=== PATIENT | male | born 1945 | race Caucasian/White ===

== ENCOUNTER 2016-06-05 13:44 | Inpatient (IN) ==
[2016-06-05] MEDS ORDERED: CeFAZolin Pre 2,000 MG/100 ML 2,000 MG/100 ML BAG IVPB ONE (14:10)
[2016-06-05] MEDS ORDERED: Ringers Solution, Lactated 1,000 ML IVC SCH ×2 (14:15→21:36)
--- NOTE | 2016-06-05 14:58 | History & Physical Report ---
Date of Encounter: 06/05/16 Time of Encounter: 14:58 24 Hour HP Update - Instructions Instructions: If the History and Physical is less than 30 days old and was completed prior to A.M. admission and or procedure and has NOT been updated on calendar day of procedure please complete this update prior to performing procedure. - Update Patient reports changes in Medical Condition: No Changes in assessment/condition: No Changes in Medication: No Preop tests/diagnostics Reviewed: Yes Surgery Remains Indicated: Yes Consent for Planned Operative Procedure(s) Verified: Yes - Pre-Operative Checklist Preoperative Checklist Indicated: No Prophylactic Antibiotic Ordered: Yes Is VTE Prophylaxis Indicated?: Yes
--- NOTE | 2016-06-05 16:14 | Anesthesia Evaluation PreOp ---
Date of Encounter: 06/05/16 Time of Encounter: 16:10 - Past History Planned Operation: Rt Total Shoulder Revision Cardiac History: HTN, Hyperlipidemia, Arrhythmia (AFib) Pulmonary History: GREG Dx STRATEGY PLANNING CONSULTANT History: Denies Any Significant HX Other Medical History: Denies Any Significant HX Anesthesia History: Past Anesthesia (Left Total Shoulder), Problems (Vocal changes) Alcohol Use: none Drug use: none Medications and Allergies Celecoxib [Celebrex] 200 mg PO DAILY 06/05/16 [History] Cetirizine HCl [Zyrtec] 10 mg PO DAILY 06/05/16 [History] Docusate [Colace] 100 mg PO DAILY 06/05/16 [History] Fluticasone Propionate Nasal [Flonase] 1 spr NS DAILY PRN 06/05/16 [History] Magnesium Oxide [Magnesium] 400 mg PO DAILY 06/05/16 [History] Multivitamin [One Daily Multivitamin] 1 each PO DAILY 06/05/16 [History] Omeprazole [PriLOSEC] 20 mg PO DAILY 06/05/16 [History] OxyCODONE/APAP 5/325 [Percocet 5/325 MG] 1 each PO Q6HR 06/05/16 [History] Potassium Chloride [Klor-Con 10] 10 meq PO BID 06/05/16 [History] Propafenone [Rhythmol] 150 mg PO TID 06/05/16 [History] Simvastatin [Zocor] 10 mg PO HS 06/05/16 [History] Tamsulosin [Flomax] 0.4 mg PO DAILY 06/05/16 [History] Warfarin [Coumadin] 2.5 mg PO OLIVAS 06/05/16 [History] Warfarin [Coumadin] 5 mg PO MOTUWEFRSA 06/05/16 [History] Allergies No Known Allergies Allergy (Verified 06/05/16 14:46) - Meds/Allergy Pre-op Review Medications Reviewed: Yes Allergies Reviewed: Yes Beta Blockers on Current Med List: Yes (Rhythmol today 0830) Anesthesia Results - Labs Labs pending - Imaging EKG: pending Anesthesia Exam O2 Sat Height 1.88 m Height 1.88 m Weight 113.398 kg Weight 113.398 kg O2 Sat by Pulse Oximetry 95 Vital Signs Temp Pulse Resp BP Pulse Ox 99.8 F H 91 16 121/80 95 06/05/16 14:32 06/05/16 14:32 06/05/16 14:32 06/05/16 14:32 06/05/16 14:32 Height: 6'2 Weight: 240 lbs NPO (# of Hours): MN - HEENT Pupil (Motor): Pupils equal, EOMI Mallampati: III Teeth: Normal Oral Opening: Less than or equal to 3 - STRATEGY PLANNING CONSULTANT LOC: Oriented STRATEGY PLANNING CONSULTANT Motor: Normal RUE, Normal LUE, Normal RLE, Normal LLE, Normal Face STRATEGY PLANNING CONSULTANT Sensory: Normal: RUE, LUE, RLE, LLE, Face - Cardiac Rhythm: Regular Murmur: None JVD: No Carotid Bruit: No - Pulmonary Breath Sounds: bilateral Clear Respiratory Effort: Symmetrical Anesthesia Assess/Plan ASA Score: 3 (AFib HTN) Modified Henrietta Scale for Level of Consciousness: Cooperative, oriented, and tranquil Anesthetic Plan: General Monitoring Plan: Standard Monitors Recovery Plan: PACU (Discussed GA, agrees to proceed)
[2016-06-05] MEDS ORDERED: Acetaminophen IV 1,000 MG/100 ML INFUS..BTL IVPB ONE (16:17)
[2016-06-05] MEDS ORDERED: Famotidine 20 MG/2 ML VIAL IVP ONE (16:17)
--- NOTE | 2016-06-05 17:17 | Discharge Summary ---
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 Status: Acute Qualifiers: Encounter type: subsequent encounter Qualified Code(s): T84.59XD - Infection and inflammatory reaction due to other internal joint prosthesis, subsequent encounter; Z96.619 - Presence of unspecified artificial shoulder joint (2) Hypertension Priority: Secondary Status: Chronic Qualifiers: Hypertension type: unspecified secondary hypertension Qualified Code(s): I15.9 - Secondary hypertension, unspecified; I15 - Secondary hypertension (3) Hyperlipidemia Priority: Secondary Status: Chronic Qualifiers: Hyperlipidemia type: unspecified Qualified Code(s): E78.5 - Hyperlipidemia , unspecified (4) Obstructive sleep apnea Priority: Secondary Status: Chronic (5) Atrial fibrillation Priority: Secondary Status: Chronic Qualifiers: Atrial fibrillation type: unspecified Qualified Code(s): I48.91 - Unspecified atrial fibrillation (6) Obesity (BMI 30.0-34.9) Priority: Secondary Status: Chronic - Discharge Medications Prescriptions: Vancomycin [Vancocin (wt based)] 1,500 mg IV Q12H 42 Days Home Medications: Celecoxib [Celebrex] 200 mg PO DAILY 06/05/16 [History] Cetirizine HCl [Zyrtec] 10 mg PO DAILY 06/05/16 [History] Docusate [Colace] 100 mg PO DAILY 06/05/16 [History] Fluticasone Propionate Nasal [Flonase] 1 spr NS DAILY PRN 06/05/16 [History] Magnesium Oxide [Magnesium] 400 mg PO DAILY 06/05/16 [History] Multivitamin [One Daily Multivitamin] 1 each PO DAILY 06/05/16 [History] Omeprazole [PriLOSEC] 20 mg PO DAILY 06/05/16 [History] OxyCODONE/APAP 5/325 [Percocet 5/325 MG] 1 - 2 each PO Q6HR PRN #40 tablet 06/05 [Rx] Potassium Chloride [Klor-Con 10] 10 meq PO BID 06/05/16 [History] Propafenone [Rhythmol] 150 mg PO TID 06/05/16 [History] Simvastatin [Zocor] 10 mg PO HS 06/05/16 [History] Tamsulosin [Flomax] 0.4 mg PO DAILY 06/05/16 [History] Warfarin [Coumadin] 2.5 mg PO OLIVAS 06/05/16 [History] Warfarin [Coumadin] 5 mg PO MOTUWEFRSA 06/05/16 [History] Vancomycin [Vancocin (wt based)] 1,500 mg IV Q12H 42 Days 06/07/16 [Rx] Allergies/Adverse Reactions: Allergies No Known Allergies Allergy (Verified 06/05/16 14:46) Primary care physician: PCP NO - Patient Status Disposition: Home Health Service Condition: Good Functional capacity at discharge: independent ambulation - Discharge Instructions Follow Up With: Zach Crawford MD [Partnered Physician] - 07/18/16 9:30 am Evelyn Adorno PAC [Physician Chief [place]] - 06/15/16 10:15 am (Also has an appt with Evelyn on 06/28/16 @ 1000) NO,PCP [Primary Care Provider] - - Hospital Course Hospital course: Mr. Salazar is a 70 year old male - Time Spent with Patient Total time spent providing and/or coordinating discharge services:
[2016-06-05] MEDS ORDERED: WATER IVPB ONE (17:25)
[2016-06-05] MEDS ORDERED: D10 IVPB ONE (17:25)
[2016-06-05] MEDS ORDERED: VANCOMYCIN IVPB ONE (17:25)
[2016-06-05 17:46] LABS: Basophils % 0.5 %; Eosinophils # 0.2 K/mcL (0.0-0.6); Eosinophils % 2.6 %; Hematocrit 34.7 % (37.5-50.1); Hemoglobin 11.6 g/dL (12.9-16.9); Immature Granulocytes % 0.3 % (0-4); Lymphocytes # 1.7 K/mcL (0.6-4.6); Lymphocytes % 21.5 %; Mean Corpuscular HGB Conc 33.4 g/dL (31.6-35.5); Mean Corpuscular Volume 89.7 fL (83.0-100.0); Mean Platelet Volume 9.6 fL (9.4-12.4); Monocytes # 0.6 K/mcL (0.0-1.3); Neutrophils # 5.3 K/mcL (1.6-8.9); Platelet Count 379 K/mcL (140-400); Red Blood Count 3.87 M/mcL (4.19-5.50); Red Cell Distribution Width 12.9 % (11.5-14.5); Segmented Neutrophils % 67.1 %
[2016-06-05 17:57] LABS: BUN/Creatinine Ratio 22 (6-26); Blood Urea Nitrogen 18 mg/dL (8-26); Carbon Dioxide 23 mEq/L (19-29); Chloride 106 mEq/L (98-109); Glucose 99 mg/dL (70-99); Osmolality,Calculated 290 (280-300); Sodium 139 mEq/L (136-145); eGFR For African Americans > 60 (> 60); eGFR For Non-African Americans > 60 (> 60)
[2016-06-05] MEDS ORDERED: Vancomycin 1,750 MG in D5% in Water 500 ML IVPB ONE (18:00)
[2016-06-05] MEDS ORDERED: *HR* FentaNYL (PF) 100 MCG/2 ML VIAL ONE ×3 (18:13→19:22)
[2016-06-05] MEDS ORDERED: *HR* Propofol 200 MG/20 ML VIAL IVP ONE (18:13)
[2016-06-05] MEDS ORDERED: Lidocaine -MPF 2% 2 ML VIAL ONE (18:14)
[2016-06-05] MEDS ORDERED: Lidocaine -MPF 4% 5 ML AMPUL ONE (18:28)
[2016-06-05] MEDS ORDERED: *HR* Succinylcholine 200 MG/10 ML VIAL IVP ONE (18:38)
[2016-06-05] MEDS ORDERED: *HR* HYDROmorphone 2 MG/ML SYRINGE ONE (18:46)
[2016-06-05] MEDS ORDERED: Ondansetron 4 MG/2 ML VIAL ONE (18:48)
[2016-06-05] MEDS ORDERED: Dexamethasone 4 MG/ML VIAL ONE (18:48)
[2016-06-05] MEDS ORDERED: EPHEDrine 50 MG/ML VIAL ONE (19:14)
--- NOTE | 2016-06-05 20:06 | Orthopedic Operative Note ---
Date of procedure: 06/05/16 Pre-op diagnosis: Infected right total shoulder Post-op diagnosis: same Procedure: Procedure: Revision Total Shoulder replacement reverse right Estimated blood loss: 300 cc Hardware: Arthrex large glenoid, 2 4.5 locking screws one 6.5 cortical screw, 42 lateral glenosphere 9 stem, 9 metal spacer 3 constrained Lisa Procedural Notes: Infected right shoulder no pus but abnormal fluid. The patient had no erythema no wound breakdown no outward signs of infection. Operative procedure: The patient was brought to the operating room and placed on the operating room table. The patient was placed in the modified beachchair position. All pressure points were padded appropriately. And the head was stabilized in the neutral position. The operative extremity was prepped and draped in the sterile surgical fashion. The patient received IV antibiotics prior to skin incision. A standard deltopectoral approach was made to the operative shoulder. Incision was made through the old incision, through the skin and subcutaneous tissue, hemo stasis was obtained with Bovie cautery. Using careful blunt dissection the cephalic vein was identified and mobilized medially. The deltopectoral interval was developed and the clavipectoral fascia was incised. An extensive debridement was performed, and the shoulder was dislocated. Fluid was encountered it was abnormal and it was sent for Gram stain. The shoulder was dislocated at this point. The humeral component was removed without incident. An Socrates device was used to remove a portion of the cement mantle. An osteotome was used as well. The humerus was broached to a 9 in 20 degrees of retroversion. Decision was made to do a cemented component. Attention then turned to the glenoid. The glenoid sphere was removed without incident. Patient had one stripped screw inferiorly which required extensive time to remove the baseplate and the screw. Evaluation of the glenoid revealed intact glenoid to fit a second baseplate. The guide was seated the guide pin was placed the centering holes made was reamed with the large reamer. A large glenoid baseplate was seated and secured with 2 4.5 locking screws and one 6.5 cortical screw. This gave secure fixation. 42 Glenosphere was seated and secured without incident. The humeral stem was impacted in place in 20 degrees of retroversion trial reduction revealed the shoulder to be relocatable trial component was removed and cement was mixed on the back table as well as components assembled while the shoulder sat for 2 minutes with a Betadine saline solution. This was irrigated out pulse irrigation. The 9 stem was cemented in 20 degrees of retroversion. Trial reduction revealed excellent motion and stability with a + 9 metal spacer and a 3 constrained Lisa spacer trials were removed real 9 and 3 constrained space was seated and secured. Short had excellent motion and excellent stability. The deep tissue was irrigated with pulse irrigation deltopectoral interval was closed with #2 PDS suture . Superficially the subcutaneous tissue was closed with 0 PDS suture, the skin was closed with Dermabond and skin mao. The patient placed sterile dressing, postoperative brace extubated and transferred to the recovery room in stable condition. Anesthesia: JAMES Surgeon: Zach Crawford Teaching Fellow: Evelyn Adorno Condition: stable Disposition: PACU
[2016-06-05] MEDS: *HR* HYDROmorphone (PF) 1 MG/ML SYRINGE IVP PRN ×3 (20:30→21:05)
[2016-06-05] MEDS ORDERED: *HR* Morphine 10 MG/ML VIAL ONE (20:39)
[2016-06-05] MEDS ORDERED: *HR* Morphine 2 MG/ML SYRINGE IVP PRN ×2 (20:44→21:36)
[2016-06-05 21:12] LABS: Hematocrit 35.9 % (37.5-50.1); Hemoglobin 11.9 g/dL (12.9-16.9)
--- NOTE | 2016-06-05 21:24 | Anesthesia Evaluation Post Op ---
Date of Encounter: 06/05/16 Time of Encounter: 21:23 - Vital Signs Vital Signs: Vital Signs/O2 Sat, Most Current Temp Pulse Resp BP Pulse Ox 98.7 F 75 16 134/83 96 06/05/16 20:50 06/05/16 21:10 06/05/16 21:10 06/05/16 21:10 06/05/16 21:10 - Lungs Lungs: Clear Ascult./Percussion - Airway Airway: Non-obstructed - Cardiovascular Regular Rate - Mental Status Mental Status: Alert & Oriented, Answers Appropriately - Pain Pain Scale: 5 Pain Scale used: Numeric (1 - 10) - Nausea Vomiting Nausea Vomiting: Not Present - Hydration Hydration: Tolerates oral liquids, Has not voided - Discharge PostOp Status: Transfer Patient to floor
[2016-06-05] MEDS ORDERED: *HR* OxyCODONE Immed Rel 5 MG TABLET PO PRN (21:36)
[2016-06-05] MEDS ORDERED: Naloxone 0.4 MG/ML INJ IVP PRN (21:36)
[2016-06-05] MEDS ORDERED: Acetaminophen 325 MG TABLET PO PRN (21:36)
[2016-06-05] MEDS ORDERED: Fluticasone Propionate Nasal 50 MCG/SPRAY BOTTLE NS PRN (21:36)
[2016-06-05] MEDS ORDERED: Sennosides 8.6 MG TABLET PO PRN (21:36)
[2016-06-05] MEDS ORDERED: MOM Conc 10 ML UD.LIQ PO PRN (21:36)
[2016-06-05] MEDS ORDERED: Ondansetron 4 MG/2 ML VIAL IVP PRN (21:36)
[2016-06-05] MEDS: *HR* Warfarin 5 MG TABLET PO SCH (22:21)
[2016-06-05] MEDS: Temazepam 15 MG CAPSULE PO PRN (23:56)
[2016-06-06] MEDS: *HR* OxyCODONE Immed Rel 5 MG TABLET PO PRN ×5 (04:17→22:41)
[2016-06-06] MEDS ORDERED: *HR* Enoxaparin 30 MG/0.3 ML SYRINGE SQ SCH (06:00)
[2016-06-06] MEDS ORDERED: Vancomycin 1,000 MG VIAL IV SCH (06:00)
[2016-06-06 06:14] LABS: Hemoglobin 11.2 g/dL (12.9-16.9)
--- NOTE | 2016-06-06 06:39 | Orthopedics Progress Note ---
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 Current Visit: Yes Status: Acute Qualifiers: Encounter type: subsequent encounter Qualified Code(s): T84.7XXD - Infection and inflammatory reaction due to other internal orthopedic prosthetic devices, implants and grafts, subsequent encounter (2) Hypertension Current Visit: Yes Status: Chronic Qualifiers: Hypertension type: unspecified secondary hypertension Qualified Code(s): I15.9 - Secondary hypertension, unspecified; I15 - Secondary hypertension (3) Hyperlipidemia Current Visit: Yes Status: Chronic Qualifiers: Hyperlipidemia type: unspecified Qualified Code(s): E78.5 - Hyperlipidemia , unspecified (4) Obstructive sleep apnea Current Visit: Yes Status: Chronic (5) Atrial fibrillation Current Visit: Yes Status: Chronic Qualifiers: Atrial fibrillation type: unspecified Qualified Code(s): I48.91 - Unspecified atrial fibrillation (6) Obesity (BMI 30.0-34.9) Current Visit: Yes Status: Chronic Subjective Interval history: Patient was seen this morning doing well without complaints. Afebrile vital signs stable. Operative extremity: Neurovascularly intact Dressing clean dry and intact Calves nontender Assessment and plan: Continue with postoperative care Hematocrit 36 will be discharged on IV antibiotics after clean blood cultures Objective Vital signs: Vital Signs Temp Pulse Resp BP Pulse Ox 06/06/16 03:42 98.7 F 70 15 131/78 96 06/06/16 00:58 98.0 F 76 16 123/76 94 L 06/05/16 23:48 97.9 F 84 16 134/77 94 L 06/05/16 22:43 98.0 F 70 16 131/76 97 06/05/16 22:15 97.9 F 68 16 130/74 98 06/05/16 22:00 97 06/05/16 21:43 98.9 F 69 16 147/84 97 06/05/16 21:20 98.5 F 73 16 130/83 96 06/05/16 21:10 75 16 134/83 96 06/05/16 21:00 77 16 128/82 95 06/05/16 20:50 98.7 F 75 16 134/76 95 06/05/16 20:40 75 16 140/74 95 06/05/16 20:30 82 16 140/70 97 06/05/16 20:20 98.7 F 77 16 135/76 100 06/05/16 14:32 99.8 F H 91 16 121/80 95 Intake and Output 06/05/16 06/05/16 06/06/16 15:59 23:59 07:59 Intake Total 200 / 200 Output Total 450 / 450 400 / 400 Balance -250 / -250 -400 / -400 Intake: IV Fluids 200 / 200 Lactated Ringers 1,000 ML 200 / 200 @ 75 mls/hr IVC .[id number] GIULIANO Rx#:[id number] Output: Urine 150 / 150 400 / 400 Estimated Blood Loss 300 / 300 Other: Weight 113.398 kg - Labs CBC & BMP: 06/06/16 05:13 06/05/16 17:33 Labs: Abnormal lab results RBC 3.87 M/mcL (4.19-5.50) L 06/05/16 17:33 Hgb 11.2 g/dL (12.9-16.9) L 06/06/16 05:13 Hct 34.0 % (37.5-50.1) L 06/06/16 05:13 - VTE Documentation of Mechanical Device: Venous foot pump, device Consult Discharge Plan - Plan Referrals: NO,PCP [Primary Care Provider] -
[2016-06-06] MEDS: Vancomycin 1,500 MG in D5% in Water 250 ML IVPB SCH ×2 (06:40→18:32)
[2016-06-06] MEDS: *HR* Enoxaparin 30 MG/0.3 ML SYRINGE SQ SCH ×2 (06:42→18:24)
[2016-06-06] MEDS ORDERED: Lidocaine -MPF 1% 5 ML AMPUL INFILT ONE (06:46)
[2016-06-06] MEDS: Celecoxib 200 MG CAPSULE PO SCH (09:19)
[2016-06-06] MEDS: Multivit/Ca/Min/Fe/FA 1 TAB TABLET PO SCH (09:19)
[2016-06-06] MEDS: Magnesium Oxide 400 MG TABLET PO SCH (09:19)
[2016-06-06] MEDS: Loratadine 10 MG TABLET PO SCH (09:21)
[2016-06-06 09:50] LABS: INR 2.3; Prothrombin Time 25.2 Seconds (9.4-12.1)
--- NOTE | 2016-06-06 18:30 | Electrocardiograph Report ---
[facility] Test Date: 2016-06-05 Pat Name: Marc Salazar Department: 106 Room: [facility] Gender: M Neighborhood Planner: JEMIMA : 1945 Requested By: Seth Keller Order Number: [id number] Reading MD: Evelyn Leach Measurements Intervals [place] Rate: 75 P: 59 ND: 157 QRS: -18 QRSD: 134 T: 25 QT: 392 QTc: 421 Interpretive Statements SINUS RHYTHM RIGHT BUNDLE BRANCH BLOCK Electronically Signed On 06-06-16 18:29:32 EST by Evelyn Leach
[2016-06-06] MEDS: *HR* Warfarin 5 MG TABLET PO SCH (18:31)
[2016-06-06] MEDS: Temazepam 15 MG CAPSULE PO PRN (22:42)
[2016-06-07] MEDS: *HR* OxyCODONE Immed Rel 5 MG TABLET PO PRN ×3 (06:04→16:14)
[2016-06-07] MEDS: *HR* Enoxaparin 30 MG/0.3 ML SYRINGE SQ SCH ×2 (06:07→19:34)
[2016-06-07 06:41] LABS: INR 1.9; Prothrombin Time 21.1 Seconds (9.4-12.1)
[2016-06-07 06:45] LABS: Hematocrit 32.7 % (37.5-50.1); Hemoglobin 10.7 g/dL (12.9-16.9)
[2016-06-07] MEDS: Vancomycin 1,500 MG in D5% in Water 250 ML IVPB SCH ×2 (07:00→17:26)
--- NOTE | 2016-06-07 07:44 | Orthopedics Progress Note ---
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 Current Visit: Yes Status: Acute Qualifiers: Encounter type: subsequent encounter Qualified Code(s): T84.7XXD - Infection and inflammatory reaction due to other internal orthopedic prosthetic devices, implants and grafts, subsequent encounter (2) Hypertension Current Visit: Yes Status: Chronic Qualifiers: Hypertension type: unspecified secondary hypertension Qualified Code(s): I15.9 - Secondary hypertension, unspecified; I15 - Secondary hypertension (3) Hyperlipidemia Current Visit: Yes Status: Chronic Qualifiers: Hyperlipidemia type: unspecified Qualified Code(s): E78.5 - Hyperlipidemia , unspecified (4) Obstructive sleep apnea Current Visit: Yes Status: Chronic (5) Atrial fibrillation Current Visit: Yes Status: Chronic Qualifiers: Atrial fibrillation type: unspecified Qualified Code(s): I48.91 - Unspecified atrial fibrillation (6) Obesity (BMI 30.0-34.9) Current Visit: Yes Status: Chronic Subjective Interval history: Patient was seen this morning doing well without complaints. Afebrile vital signs stable. Operative extremity: Neurovascularly intact Dressing clean dry and intact Calves nontender Assessment and plan: Continue with postoperative care Hematocrit 32 Gram stain positive gram-positive cocci blood cultures negative to date plan for discharge on vancomycin with PICC line Objective Vital signs: Vital Signs Temp Pulse Resp BP Pulse Ox 06/07/16 07:16 97.9 F 69 16 129/74 95 06/07/16 05:14 98.5 F 72 16 124/74 94 L 06/07/16 01:46 98.0 F 78 17 131/73 94 L 06/06/16 16:02 98.5 F 73 18 146/85 95 06/06/16 10:52 97.6 F 81 18 109/71 93 L Intake and Output 06/06/16 06/06/16 06/07/16 15:59 23:59 07:59 Intake Total 490 / 490 250 / 250 Balance 490 / 490 250 / 250 Intake: IV Fluids 250 / 250 250 / 250 Vancocin 1,500 MG In 250 / 250 250 / 250 Dextrose 5% 250 ML @ 166. 667 mls/hr IVPB Q12H GIULIANO Rx#:[id number] Oral 240 / 240 Other: Meal Lunch Percent of Meal Consumed 100% # Voids 1 - Labs CBC & BMP: 06/07/16 06:09 06/05/16 17:33 Labs: Abnormal lab results RBC 3.87 M/mcL (4.19-5.50) L 06/05/16 17:33 Hgb 10.7 g/dL (12.9-16.9) L 06/07/16 06:09 Hct 32.7 % (37.5-50.1) L 06/07/16 06:09 PT 21.1 Seconds (9.4-12.1) H 06/07/16 06:09 - VTE Documentation of Mechanical Device: Venous foot pump, device Consult Discharge Plan - Plan Referrals: NO,PCP [Primary Care Provider] -
[2016-06-07] MEDS: Loratadine 10 MG TABLET PO SCH (09:58)
[2016-06-07] MEDS: Magnesium Oxide 400 MG TABLET PO SCH (09:58)
[2016-06-07] MEDS: Multivit/Ca/Min/Fe/FA 1 TAB TABLET PO SCH (09:59)
[2016-06-07] MEDS: Celecoxib 200 MG CAPSULE PO SCH (09:59)
[2016-06-07 11:13] VITALS: BP 137/81
[2016-06-07] MEDS ORDERED: Aminoglycoside Consult 1 EACH MC ONE (19:49)
[2016-06-11] MEDS ORDERED: *HR* Warfarin 2.5 MG TABLET PO SCH (18:00)
== END 2016-06-07 19:50 | disposition home health service (06) | DRG 483 ==
LOC: SAMDAY 13:44 → 3NENU 22:00
PROVIDERS: ADMIT Orthopaedic Surgery; ATTEND Orthopaedic Surgery